=== PATIENT | male | born 1965 | race Caucasian/White ===

== ENCOUNTER 2016-12-05 11:44 | Inpatient (IN) | payer BC ==
[2016-12-05] MEDS ORDERED: DIPH,PERTUS(ACELL)TETVAC-LF 0.5 ML VIAL IM ONE (12:04)
--- NOTE | 2016-12-05 12:04 | ED ---
General Adult HPI - General Chief complaint: Head Injury Stated complaint: head injury Time Seen by Provider: 12/05/16 11:55 Source: patient, RN notes reviewed Mode of arrival: wheelchair Limitations: no limitations - History of Present Illness Initial comments: This a 51-year-old male who states he was cutting down a tree when adjacent tree fell and struck him in the head. Patient denies any loss of consciousness per patient states he is currently having headache in complaining of neck pain and he complains of bilateral tingling in his arms. Patient denies any numbness she denies any weakness of his arms. Patient denies any lower extremity numbness or weakness. Patient denies any other injuries. Patient denies chest pain palpitations difficulty breathing or shortness of breath. Patient denies any back pain. Patient denies any abdominal pain. Patient drove himself to the emergency department. - Related Data Home Medications Medication Instructions Recorded Confirmed Cetirizine HCl [Zyrtec] 10 mg PO DAILY 12/05/16 12/05/16 Naproxen [Naprosyn] 500 mg PO BID PRN 12/05/16 12/05/16 Allergies Allergy/AdvReac Type Severity Reaction Status Date / Time morphine AdvReac unable to Verified 12/05/16 12:43 urinate after surgery Review of Systems ROS Statement: Those systems with pertinent positive or pertinent negative responses have been documented in the HPI. ROS Other: All systems not noted in ROS Statement are negative. Past Medical History Past Medical History: Osteoarthritis (OA) History of Any Multi-Drug Resistant Organisms: None Reported Past Surgical History: Back Surgery, Orthopedic Surgery Additional Past Surgical History / Comment(s): right shoulder surg., right knee surg. x 3 Past Anesthesia/Blood Transfusion Reactions: No Reported Reaction Past Psychological History: No Psychological Hx Reported Smoking Status: Never smoker Past Alcohol Use History: None Reported Past Drug Use History: None Reported - Past Family History Father Family Medical History: Cancer General Exam - General Exam Comments Initial Comments: GENERAL: Patient is well-developed and well-nourished. Patient is nontoxic and well- hydrated and is in moderate distress. ENT: Neck is soft and supple. No significant lymphadenopathy is noted. Oropharynx is clear. Moist mucous membranes. Neck has full range of motion without eliciting any pain. EYES: The sclera were anicteric and conjunctiva were pink and moist. Extraocular movements were intact and pupils were equal round and reactive to light. Eyelids were unremarkable. PULMONARY: Unlabored respirations. Good breath sounds bilaterally. No audible rales rhonchi or wheezing was noted. CARDIOVASCULAR: There is a regular rate and rhythm without any murmurs gallops or rubs. ABDOMEN: Soft and nontender with normal bowel sounds. SKIN: Patient has a large crescent shaped laceration to the right side of his scalp measuring about 18 cm NEUROLOGIC: Patient is alert and oriented x3. Cranial nerves II through XII are grossly intact. Motor and sensory are also intact. Normal speech, volume and content. Symmetrical smile. MUSCULOSKELETAL: Normal extremities with adequate strength and full range of motion. No lower extremity swelling or edema. No calf tenderness. LYMPHATICS: No significant lymphadenopathy is noted PSYCHIATRIC: Normal psychiatric evaluation. Limitations: no limitations Course Vital Signs 12/05/16 11:53 Temperature 97.7 F Pulse Rate 74 Respiratory 20 Rate Blood Pressure 136/76 O2 Sat by Pulse 98 Oximetry Medical Decision Making - Medical Decision Making EKG shows sinus bradycardia with an occasional PVC at 55 bpm TN interval is 178 QRS is 96 Q-T intervals 434 QTC is 4:15. Patient's EKG shows no ST segment elevation or depression or T wave abnormalities are noted. CT of the brain is negative. CT of the C-spine is negative. I went in and they reexamined the patient he had some neck tenderness bilaterally. I discussed the case with Dr. Wong he wanted the patient but and aspirin collar and Dr. Archer will take the patient to the OR neurology will be consult and they will potentially do an MRI in the morning. I spoke with Dr. Ferris on 3 different occasions initially when I upgraded to trauma trauma 2. And again when the patient needed to go to OR. - Lab Data Result diagrams: 12/05/16 12:00 12/05/16 12:00 Lab Results 12/05/16 12/05/16 12/05/16 Range/Units 12:00 12:00 12:00 WBC 7.6 (3.8-10.6) k/uL RBC 4.96 (4.30-5.90) m/uL Hgb 15.0 (13.0-17.5) gm/dL Hct 44.8 (39.0-53.0) % MCV 90.3 (80.0-100.0) fL MCH 30.2 (25.0-35.0) pg MCHC 33.5 (31.0-37.0) g/dL RDW 12.9 (11.5-15.5) % Plt Count 257 (150-450) k/uL Neutrophils % 52 % Lymphocytes % 32 % Monocytes % 8 % Eosinophils % 3 % Basophils % 1 % Neutrophils # 3.9 (1.3-7.7) k/uL Lymphocytes # 2.5 (1.0-4.8) k/uL Monocytes # 0.6 (0-1.0) k/uL Eosinophils # 0.3 (0-0.7) k/uL Basophils # 0.1 (0-0.2) k/uL PT (9.0-12.0) sec INR (<1.1) APTT (22.0-30.0) sec Sodium 140 (137-145) mmol/L Potassium 3.7 (3.5-5.1) mmol/L Chloride 106 (98-107) mmol/L Carbon Dioxide 20 L (22-30) mmol/L Anion Gap 14 mmol/L BUN 16 (9-20) mg/dL Creatinine 1.02 (0.66-1.25) mg/dL Est GFR (MDRD) Af Amer >60 (>60 ml/min/1.73 sqM) Est GFR (MDRD) Non-Af >60 (>60 ml/min/1.73 sqM) Glucose 156 H (74-99) mg/dL Calcium 9.6 (8.4-10.2) mg/dL Total Bilirubin 0.9 (0.2-1.3) mg/dL AST 35 (17-59) U/L ALT 39 (21-72) U/L Alkaline Phosphatase 63 (38-126) U/L Total Protein 7.4 (6.3-8.2) g/dL Albumin 4.5 (3.5-5.0) g/dL Amylase 63 (30-110) U/L Lipase 199 (23-300) U/L Serum Alcohol <10 mg/dL Blood Type A Positive Blood Type Recheck CABO Indicated Spec Expiration Date 12/08/2016 - 229912/05/16 Range/Units 12:00 WBC (3.8-10.6) k/uL RBC (4.30-5.90) m/uL Hgb (13.0-17.5) gm/dL Hct (39.0-53.0) % MCV (80.0-100.0) fL MCH (25.0-35.0) pg MCHC (31.0-37.0) g/dL RDW (11.5-15.5) % Plt Count (150-450) k/uL Neutrophils % % Lymphocytes % % Monocytes % % Eosinophils % % Basophils % % Neutrophils # (1.3-7.7) k/uL Lymphocytes # (1.0-4.8) k/uL Monocytes # (0-1.0) k/uL Eosinophils # (0-0.7) k/uL Basophils # (0-0.2) k/uL PT 10.9 (9.0-12.0) sec INR 1.1 (<1.1) APTT 22.0 (22.0-30.0) sec Sodium (137-145) mmol/L Potassium (3.5-5.1) mmol/L Chloride (98-107) mmol/L Carbon Dioxide (22-30) mmol/L Anion Gap mmol/L BUN (9-20) mg/dL Creatinine (0.66-1.25) mg/dL Est GFR (MDRD) Af Amer (>60 ml/min/1.73 sqM) Est GFR (MDRD) Non-Af (>60 ml/min/1.73 sqM) Glucose (74-99) mg/dL Calcium (8.4-10.2) mg/dL Total Bilirubin (0.2-1.3) mg/dL AST (17-59) U/L ALT (21-72) U/L Alkaline Phosphatase (38-126) U/L Total Protein (6.3-8.2) g/dL Albumin (3.5-5.0) g/dL Amylase (30-110) U/L Lipase (23-300) U/L Serum Alcohol mg/dL Blood Type Blood Type Recheck Spec Expiration Date Disposition Clinical Impression: Closed head injury, Scalp laceration, Cervical strain, acute Disposition: ADMITTED IP TO THIS [facility] Referrals: Antonio Salmeron DO [Primary Care Provider] - 1-2 days Time of Disposition: 13:00
[2016-12-05] MEDS ORDERED: HYDROmorphone 1 MG/ML 1 ML SYRINGE IVP STA (12:05)
[2016-12-05] MEDS ORDERED: ONDANSETRON 4 MG/2 ML VIAL IVP STA (12:06)
[2016-12-05] MEDS ORDERED: ceFAZolin 2 GM in SODIUM CHLORIDE 0.9% 100 ML IVPB STA (12:12)
--- NOTE | 2016-12-05 12:22 | XR ---
EXAMINATION TYPE: XR pelvis AP view DATE OF EXAM ORDERED: 12/05/2016 HISTORY: Trauma. COMPARISON: None. FINDINGS: The bony pelvis is intact. No fracture is seen. There are mild degenerative changes within the lumbar spine. IMPRESSION: NO ACUTE OSSEOUS LESION.
--- NOTE | 2016-12-05 12:23 | XR ---
EXAMINATION TYPE: XR chest 1V portable DATE OF EXAM: 12/05/2016 HISTORY: trauma. REFERENCE: NONE. FINDINGS: The lungs are clear. Pleural space are clear. Heart size is normal. No acute osseous lesion is seen. IMPRESSION: NO ACUTE INTRATHORACIC ABNORMALITY.
[2016-12-05 12:27] LABS: Basophils # (A) 0.1 k/uL (0-0.2); Basophils % (A) 1 %; CH 31.7; CHCM 35.3; Eosinophils # (A) 0.3 k/uL (0-0.7); Eosinophils % (A) 3 %; HCT 44.8 % (39.0-53.0); HDW 2.56; Luc % (Auto) 4; Lymphocytes # (A) 2.5 k/uL (1.0-4.8); Lymphocytes % (A) 32 %; MCH 30.2 pg (25.0-35.0); MCHC 33.5 g/dL (31.0-37.0); MCV 90.3 fL (80.0-100.0); Mean Platelet Volume 7.3; Monocytes # (A) 0.6 k/uL (0-1.0); Monocytes % (A) 8 %; Neutrophils # (A) 3.9 k/uL (1.3-7.7); Neutrophils % (A) 52 %; RBC 4.96 m/uL (4.30-5.90); RDW 12.9 % (11.5-15.5); WBC 7.6 k/uL (3.8-10.6); WBC (Perox) 7.09
[2016-12-05 12:35] LABS: INR 1.1 (<1.1); Prothrombin Time 10.9 sec (9.0-12.0)
[2016-12-05] MEDS ORDERED: SODIUM CHLORIDE 0.9% 1,000 ML IV STA (12:35)
[2016-12-05 12:38] LABS: ALT 39 U/L (21-72); AST 35 U/L (17-59); Alcohol <10 mg/dL; Alkaline Phosphatase 63 U/L (38-126); Amylase 63 U/L (30-110); Anion Gap 14 mmol/L; Blood Urea Nitrogen 16 mg/dL (9-20); Calcium 9.6 mg/dL (8.4-10.2); Carbon Dioxide 20 mmol/L (22-30); Chloride 106 mmol/L (98-107); Glucose 156 mg/dL (74-99); Non-African American GFR(MDRD) >60 (>60 ml/min/1.73 sqM); Potassium 3.7 mmol/L (3.5-5.1); Sodium 140 mmol/L (137-145); Total Bilirubin 0.9 mg/dL (0.2-1.3); Total Protein 7.4 g/dL (6.3-8.2)
--- NOTE | 2016-12-05 12:43 | CT ---
EXAMINATION TYPE: CT brain isabel romero DATE OF EXAM: 12/05/2016 COMPARISON: Previous CT scan of the brain dated 12/30/2008 11 HISTORY: Head injury. Tree fell lengthwise on head CT DLP: 1594.60 mGycm Automated exposure control for dose reduction was used. TECHNIQUE: CT scan of the head and cervical spine are performed without contrast. FINDINGS: BRAIN: There is a right frontal scalp laceration. Central structures are midline. There is no evidence of hydrocephalus. No acute focal lesion, mass ef fect or midline shift is seen. I do not see evidence of intracranial blood. No depressed skull fracture is seen. There is extensive mucoperiosteal thickening involving the right maxillary sinus. There is a lesser degree of mucosal thickening involving the left maxillary sinus. The zygomatic arches are intact. The pterygoid plates are intact. Mastoid air cells are normal. IMPRESSION: 1. RIGHT FRONTAL SCALP LACERATION. 2. NO ACUTE INTRACRANIAL ABNORMALITY. 3. SINUS MUCOSAL DISEASE. CERVICAL SPINE: Visualized portions of the lungs are clear. There is emphysematous change. Prevertebral soft tissues are normal. Vertebral body height and alignment are maintained. Atlantoaxial relationships are normal. There is disc space loss and hypertrophic spondylosis at C5-6 and C6-7. There is uncovertebral joint disease at C3-4 through C6-7. There is facet arthropathy at C6-7. No fractures are seen. No definite protrusion is seen.. There is intervertebral foraminal narrowing bilaterally at C5-6 and on the left at C6-7. IMPRESSION: 1. NO ACUTE OSSEOUS LESION. 2. EXTENSIVE DEGENERATIVE CHANGE.
[2016-12-05 12:46] LABS: Creatine Kinase 195 U/L (55-170)
[2016-12-05 12:59] LABS: Creatine Kinase MB 0.8 ng/mL (0.0-2.4); Troponin I <0.012 ng/mL (0.000-0.034)
--- NOTE | 2016-12-05 13:33 | P.GSHP ---
History of Present Illness H&P Date: 12/05/16 Chief Complaint: Scalp laceration from a tree falling on him The patient was cutting down a tree when an adjacent tree fell and struck him in the head. He did not have loss of consciousness. He developed large scalp laceration and was feeling neck pain and tingling in his upper extremities. The tingling has since resolved. He also had some blurry vision. The blurry vision has resolved. No nausea or vomiting. He had unremarkable workup. Dr. Trent was contacted via phone and gave recommendations. - Review of Systems All systems: negative Past Medical History Past Medical History: Osteoarthritis (OA) History of Any Multi-Drug Resistant Organisms: None Reported Past Surgical History: Back Surgery, Orthopedic Surgery Additional Past Surgical History / Comment(s): right shoulder surg., right knee surg. x 3 Past Anesthesia/Blood Transfusion Reactions: No Reported Reaction Past Psychological History: No Psychological Hx Reported Smoking Status: Never smoker Past Alcohol Use History: None Reported Past Drug Use History: None Reported - Past Family History Father Family Medical History: Cancer Medications and Allergies Home Medications Medication Instructions Recorded Confirmed Type Cetirizine HCl [Zyrtec] 10 mg PO DAILY 12/05/16 12/05/16 History Naproxen [Naprosyn] 500 mg PO BID PRN 12/05/16 12/05/16 History Allergies Allergy/AdvReac Type Severity Reaction Status Date / Time morphine AdvReac unable to Verified 12/05/16 12:43 urinate after surgery Surgical - Exam Osteopathic Statement: *. No significant issues noted on an osteopathic structural exam other than those noted in the History and Physical/Consult. Vital Signs Temp Pulse Resp BP Pulse Ox 97.7 F 74 20 136/76 98 12/05/16 11:53 12/05/16 11:53 12/05/16 11:53 12/05/16 11:53 12/05/16 11:53 - General well developed, well nourished, no distress - Eyes normal ocular movement - ENT normal pinna, normal nares - Neck trachea midline - Respiratory normal respiratory effort, clear to auscultation - Cardiovascular Rhythm: regular - Abdomen Abdomen: soft, non tender - Integumentary The scalp laceration was evaluated by the emergency department physician. He currently has a large bulky dressing which is bloodsoaked - Neurologic no disoriented, no combative - Psychiatric oriented to time, oriented to person, oriented to place, speech is normal, memory intact Results - Labs 12/05/16 12:00 12/05/16 12:00 Abnormal Lab Results - Last 24 Hours (Table) 12/05/16 12/05/16 12/05/16 Range/Units 12:00 12:00 12:30 Carbon Dioxide 20 L (22-30) mmol/L Glucose 156 H (74-99) mg/dL Plasma Lactic Acid Mitch 2.4 H* (0.7-2.0) mmol/L Total Creatine Kinase 195 H (55-170) U/L Diabetes panel 12/05/16 Range/Units 12:00 Sodium 140 (137-145) mmol/L Potassium 3.7 (3.5-5.1) mmol/L Chloride 106 (98-107) mmol/L Carbon Dioxide 20 L (22-30) mmol/L BUN 16 (9-20) mg/dL Creatinine 1.02 (0.66-1.25) mg/dL Glucose 156 H (74-99) mg/dL Calcium 9.6 (8.4-10.2) mg/dL AST 35 (17-59) U/L ALT 39 (21-72) U/L Alkaline Phosphatase 63 (38-126) U/L Total Protein 7.4 (6.3-8.2) g/dL Albumin 4.5 (3.5-5.0) g/dL Calcium panel 12/05/16 Range/Units 12:00 Calcium 9.6 (8.4-10.2) mg/dL Albumin 4.5 (3.5-5.0) g/dL Pituitary panel 12/05/16 Range/Units 12:00 Sodium 140 (137-145) mmol/L Potassium 3.7 (3.5-5.1) mmol/L Chloride 106 (98-107) mmol/L Carbon Dioxide 20 L (22-30) mmol/L BUN 16 (9-20) mg/dL Creatinine 1.02 (0.66-1.25) mg/dL Glucose 156 H (74-99) mg/dL Calcium 9.6 (8.4-10.2) mg/dL Adrenal panel 12/05/16 Range/Units 12:00 Sodium 140 (137-145) mmol/L Potassium 3.7 (3.5-5.1) mmol/L Chloride 106 (98-107) mmol/L Carbon Dioxide 20 L (22-30) mmol/L BUN 16 (9-20) mg/dL Creatinine 1.02 (0.66-1.25) mg/dL Glucose 156 H (74-99) mg/dL Calcium 9.6 (8.4-10.2) mg/dL Total Bilirubin 0.9 (0.2-1.3) mg/dL AST 35 (17-59) U/L ALT 39 (21-72) U/L Alkaline Phosphatase 63 (38-126) U/L Total Protein 7.4 (6.3-8.2) g/dL Albumin 4.5 (3.5-5.0) g/dL - Imaging Comments: Computed tomography scan report was reviewed Assessment and Plan (1) Cervical strain, acute Status: Acute (2) Closed head injury Status: Acute (3) Scalp laceration Status: Acute Plan: We'll take the patient to the OR for washout and closure of the wound. Monitor him overnight and he will be evaluated by Dr. Tovar tomorrow. Further recommendations to follow.
[2016-12-05] MEDS ORDERED: PROPOFOL 10 MG/ML 20 ML VIAL IV ONE (14:06)
[2016-12-05] MEDS ORDERED: fentaNYL (PF) 50 MCG/ML 2 ML AMP ONE (14:06)
[2016-12-05] MEDS ORDERED: SUCCINYLCHOLINE CHLORIDE 100 MG/5 ML SYR IV ONE (14:06)
[2016-12-05] MEDS ORDERED: MIDAZOLAM 2 MG/2 ML VIAL ONE (14:06)
[2016-12-05] MEDS ORDERED: IV FLUID CONTINUATION 800 ML IV ONE (14:06)
[2016-12-05] MEDS ORDERED: ONDANSETRON 4 MG/2 ML VIAL ONE (14:06)
[2016-12-05] MEDS ORDERED: BUPIVACAIN-EPI 0.5%-1:200,000 30 ML VIAL SQ ONE ×2 (14:34)
[2016-12-05] MEDS ORDERED: LACTATED RINGERS 1,000 ML IV ONE ×2 (14:54)
[2016-12-05] MEDS ORDERED: BACITRACIN 500 UNIT/GM OINT 28.4 GM TUBE TOPICAL ONE (15:00)
[2016-12-05] MEDS ORDERED: NAPROXEN 250 MG TAB PO PRN (15:08)
[2016-12-05] MEDS ORDERED: ONDANSETRON 4 MG/2 ML VIAL IVP PRN (15:08)
[2016-12-05] MEDS ORDERED: NALOXONE 0.4 MG/ML 1 ML VIAL IV PRN (15:08)
--- NOTE | 2016-12-05 15:19 | P.OP ---
Date of Procedure: 12/05/16 Preoperative Diagnosis: Scalp laceration Postoperative Diagnosis: Complex scalp laceration Procedure(s) Performed: Repair of scalp laceration Implants: Anesthesia: JEANCARLOSA Surgeon: Renee Ferris Estimated Blood Loss (ml): 250 Pathology: none sent Condition: stable Disposition: PACU Indications for Procedure: The patient was struck by a falling tree root resulting in a laceration to the scalp Operative Findings: Patient's taken the operative suite where he is prepped and draped in the usual sterile manner under general anesthetic. C-collar was maintained throughout the procedure. He's found to have a large curvilinear laceration about 18 cm long. Over several pulsatile areas of bleeding along the cut edge. These were initially controlled with hemostats. They were then suture ligated with 3-0 Vicryl. Local anesthetic was then instilled into the skin and subcutaneous tissue along the laceration for hemostasis. Small bleeding points are controlled with electrocautery. The wound was then irrigated with Pulsavac. The skin was noted to be degloving about 8 cm towards the right. More medially the galea was completely disrupted. The cranium was visible, it appeared to be intact with no fractures. The galea was then sutured back together using 3-0 Vicryl. A quarter inch Dian drain was then placed under the flap. The skin was then closed in layers. Some deep 3-0 Vicryl sutures were placed. Then interrupted 3-0 Prolene. His heads cleaned of blood and then a sterile dressings applied. He tolerated the procedure without difficulties taken recovery room in satisfactory condition. We'll recheck his hemoglobin later today as the dressing from the emergency department was saturated with at least 200-300 mL's of blood. Description of Procedure:
--- NOTE | 2016-12-05 17:03 | P.CNNES ---
History of Present Illness Consult date: 12/05/16 Reason for Consult: Patient sustained closed head injury and scalp laceration from tree fall. History of Present Illness: This patient is a 51-year-old right-handed white male who was in his usual state of health until earlier today. The patient apparently was outdoors cutting a tree down with a saw when a adjacent tree fell and struck him on the top of his head. Patient was not wearing any headgear helmet at the time. He developed a large scalp laceration and was bleeding profusely from the scalp. Patient states he felt the initial head trauma but did not have any loss of consciousness with this impact. He immediately took his shirt and rafted around his head and scalp areas it was profusely bleeding. Apparently he phoned his and told her what had happened and stated that he was on his way there. When he arrived at his home he had significant bleeding from the scalp area. His immediately put a dressing and brought him into the emergency room at [facility] for further evaluation. While in route to the hospital ER the patient did complain of numbness and tingling sensation with mild neck pain radiating down both arms. By the time he was evaluated in the ER by Dr. Gregorio his symptoms of hand numbness had improved and resolved. The patient states that his initial impacted produce a headache which he rated about 7/10 in intensity. His headache symptoms now is 2/10. He was given some pain medications in the ER. He was placed in a hard cervical collar as well. The patient has no previous history of neck injury or head trauma. He thinks he may have had a few concussions as a teenager. He was seen in the emergency room by Dr. Gregorio. He underwent a computed tomography scan of the brain which revealed a right frontal scalp laceration. No acute intracranial abnormality was noted. Sinus mucosal disease was noted. Computed tomography scan of the cervical spine revealed no acute osseous lesion. Extensive degenerative change was noted at multiple levels of the C-spine. There was no evidence of any fracture or subluxation. Patient states he does have a history of neck trouble in the past with arthritis. He denies any major neck injury or motor vehicle accidents previously. 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 He has been in good health up until this injury today. The patient states his neck symptoms have resolved since coming into the hospital. He does feel some discomfort in the neck region but no significant pain or radicular symptoms down either arm. We reviewed the results of the CT of the brain and cervical spine with the patient. He is advised to inform the nursing staff if he develops any worsening headache, nausea vomiting, or focal weakness. We have mentioned to the patient that following closed head injury we are always on the look out for possibility of subdural hematoma. We will continue close neurological follow-up with this patient during this admission. Patient was seen by Dr. Ferris who has treated his scalp laceration. Orthopedic spine surgery is also been consulted. He was taken to the OR for washout and closure of the scalp wound. The patient is now admitted and neurology has been consulted for further evaluation and recommendations. Review of Systems Constitutional: Denies chills, Denies fever Eyes: denies blurred vision, denies pain Ears, nose, mouth and throat: Denies headache, Denies sore throat Cardiovascular: Denies chest pain, Denies shortness of breath Respiratory: Denies cough Gastrointestinal: Denies abdominal pain, Denies diarrhea, Denies nausea, Denies vomiting Musculoskeletal: Reports neck pain, Denies myalgias Integumentary: Denies pruritus, Denies rash Neurological: Reports headaches, Denies numbness, Denies weakness Psychiatric: Denies anxiety, Denies depression Endocrine: Denies fatigue, Denies weight change Past Medical History Past Medical History: Osteoarthritis (OA) History of Any Multi-Drug Resistant Organisms: None Reported Past Surgical History: Back Surgery, Orthopedic Surgery Additional Past Surgical History / Comment(s): right shoulder surg., right knee surg. x 3 Past Anesthesia/Blood Transfusion Reactions: No Reported Reaction Past Psychological History: No Psychological Hx Reported Smoking Status: Never smoker Past Alcohol Use History: None Reported Past Drug Use History: None Reported - Past Family History Father Family Medical History: Cancer Medications and Allergies Home Medications Medication Instructions Recorded Confirmed Type Cetirizine HCl [Zyrtec] 10 mg PO DAILY 12/05/16 12/05/16 History Naproxen [Naprosyn] 500 mg PO BID PRN 12/05/16 12/05/16 History Allergies Allergy/AdvReac Type Severity Reaction Status Date / Time morphine AdvReac unable to Verified 12/05/16 12:43 urinate after surgery Physical Examination - Vital Signs Vital Signs: Vital Signs Temp Pulse Pulse Resp BP BP Pulse Ox 12/05/16 15:51 70 18 128/74 95 12/05/16 15:36 66 18 123/74 98 12/05/16 15:21 97.4 F L 64 20 137/78 99 12/05/16 11:53 97.7 F 74 20 136/76 98 Intake and Output 12/05/16 12/05/16 12/05/16 06:59 14:59 22:59 Intake Total 800 900 Output Total 200 Balance 600 900 Intake: IV 800 900 Output: Estimated Blood Loss 200 Other: Weight 95.254 kg Patient Weight 12/06/16 06:59 Weight 95.254 kg - Constitutional General appearance: average body habitus, cooperative - EENT EENT: PERRL, mucous membranes moist - Respiratory Respiratory: lungs clear, normal breath sounds - Cardiovascular Cardiovascular: regular rate, normal S1, normal S2 Extremities: no peripheral edema bilaterally - Gastrointestinal Gastrointestinal: normoactive bowel sounds - Integumentary Integumentary: normal - Neurologic Cranial nerve examination: PERRL, EOMI (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.), VFF, V1/V2/V3 grossly intact, face symmetric, tongue midline, intact gag reflex, intact corneal reflex, normal palatal elevation Speech examination: intact Sensorimotor examination: intact Detailed motor examination: full strength in all major muscle groups Motor examination - right side: 5/5: biceps, triceps, wrist flexion, wrist extension, assistant technician, hip flexors, knee extensors, dorsiflexion, toe extension (EHL) , plantarflexion Motor examination - left side: 5/5: biceps, triceps, wrist flexion, wrist extension, assistant technician, hip flexors, knee extensors, dorsiflexion, toe extension (EHL) , plantarflexion Detailed sensory examination: intact Reflex and gait examination: intact Reflexes: 1+: ankle, bicep, knee, tricep - Musculoskeletal Musculoskeletal: no pain - Psychiatric Psychiatric: mood/affect appropriate, cooperative Results - Laboratory Findings CBC and BMP: 12/05/16 12:00 12/05/16 12:00 Abnormal Lab Findings: Abnormal Labs 12/05/16 12/05/16 12/05/16 12:00 12:00 12:30 Carbon Dioxide 20 L Glucose 156 H Plasma Lactic Acid Mitch 2.4 H* Total Creatine Kinase 195 H Assessment and Plan (1) Closed head injury Status: Acute Code(s): S09.90XA - UNSPECIFIED INJURY OF HEAD, INITIAL ENCOUNTER (2) Headache Status: Acute Code(s): R51 - HEADACHE (3) Cervical strain, acute Status: Acute Code(s): S16.1XXA - STRAIN OF MUSCLE, FASCIA AND TENDON AT NECK LEVEL, INIT (4) Scalp laceration Status: Acute Code(s): S01.01XA - LACERATION WITHOUT FOREIGN BODY OF SCALP, INITIAL ENCOUNTER Plan: This patient is a 51-year-old male who was out doors cutting the tree down when in the adjacent tree fell and struck him on the top of his head near the vertex. He did not have any loss of consciousness but did feel a jolt from the closed head injury. He developed a large scalp laceration and was profusely bleeding. He was able to contact his who decided immediately to bring him to the emergency room at [facility]. He was seen in the ER and was placed in a cervical collar. He underwent a computed tomography scan of the brain and cervical spine the results of which are noted above. Patient was seen by Dr. Ferris who did take the patient to the operating room for washout of the wound and flap area as well as closure of the wound. He was then admitted to the hospital. His neurological examination at this time is nonfocal. We have recommended the patient undergo MRI of the cervical spine for further evaluation of episode of bilateral paresthesias involving both upper extremities following closed head injury and had trauma. He does have evidence of some arthritic changes in the C-spine on computed tomography scan of the C-spine. We will await the MRI of the cervical spine to rule out any more significant changes. We reviewed the results of the computed tomography scan of the brain with the patient today in detail. His headache symptoms have reduced to 2/10 in intensity. If he has any further neurological deficits MRI of the brain will also be needed. We will continue close neurological follow- up for the patient. His neurological examination at this time is nonfocal. He is advised to monitor for any neuro changes over the next 48 hours including headache, nausea vomiting, and excessive sleepiness and fatigue. We reviewed the possibility of subdural hematoma formation following closed head injury. We will continue to monitor him closely for any neurological changes during this admission. His overall prognosis at this time remains fair. We will continue close neurological follow-up with this patient during this admission. Time with Patient: Greater than 30
[2016-12-05] MEDS: PANTOPRAZOLE 40 MG/10 ML VIAL IV SCH (17:48)
[2016-12-05 18:51] LABS: Basophils % (A) 0 %; CH 31.2; CHCM 33.6; Eosinophils # (A) 0.1 k/uL (0-0.7); Eosinophils % (A) 1 %; HCT 38.6 % (39.0-53.0); HDW 2.49; HGB 12.6 gm/dL (13.0-17.5); Luc % (Auto) 1; Lymphocytes # (A) 0.7 k/uL (1.0-4.8); Lymphocytes % (A) 7 %; MCH 30.5 pg (25.0-35.0); MCHC 32.7 g/dL (31.0-37.0); MCV 93.3 fL (80.0-100.0); Mean Platelet Volume 7.1; Monocytes # (A) 0.5 k/uL (0-1.0); Monocytes % (A) 5 %; Neutrophils # (A) 8.1 k/uL (1.3-7.7); Neutrophils % (A) 86 %; RBC 4.13 m/uL (4.30-5.90); RDW 12.9 % (11.5-15.5); WBC 9.4 k/uL (3.8-10.6); WBC (Perox) 10.13
[2016-12-05] MEDS: D5-0.45% NACL WITH KCL 20MEQ/L 1,000 ML IV SCH (20:37)
[2016-12-05] MEDS: HYDROcodone/APAP 5-325MG 1 EACH TAB PO PRN (22:22)
[2016-12-06 00:27] LABS: Appearance,Urine Clear (Clear); Bilirubin,Urine Negative (Negative); Glucose,Urine (UA) Negative (Negative); Ketones,Urine 1+ (Negative); Leukocyte Esterase,Urine Negative (Negative); Mucus,Urine Rare /hpf; Nitrite,Urine Negative (Negative); Particle Count 750; Protein,Urine Negative (Negative); Specific Gravity,Urine 1.011 (1.001-1.035); UA Billing (MACRO vs. MICRO) CHEM; Urobilinogen,Urine <2.0 mg/dL (<2.0); WBC,Urine 1 /hpf (0-5)
[2016-12-06 03:35] VITALS: RESP 16
[2016-12-06] MEDS: HYDROcodone/APAP 5-325MG 1 EACH TAB PO PRN ×2 (05:53→15:36)
[2016-12-06 06:40] LABS: CH 31.2; CHCM 35.2; HCT 33.5 % (39.0-53.0); HDW 2.58; MCH 31.9 pg (25.0-35.0); MCHC 35.9 g/dL (31.0-37.0); MCV 88.9 fL (80.0-100.0); Mean Platelet Volume 7.4; RBC 3.77 m/uL (4.30-5.90); RDW 12.5 % (11.5-15.5); WBC 5.8 k/uL (3.8-10.6)
[2016-12-06 07:13] LABS: Anion Gap 4 mmol/L; Blood Urea Nitrogen 11 mg/dL (9-20); Carbon Dioxide 26 mmol/L (22-30); Chloride 108 mmol/L (98-107); Glucose 104 mg/dL (74-99); Non-African American GFR(MDRD) >60 (>60 ml/min/1.73 sqM); Potassium 3.8 mmol/L (3.5-5.1); Sodium 138 mmol/L (137-145)
[2016-12-06] MEDS: LORATADINE 10 MG TAB PO SCH (07:32)
[2016-12-06] MEDS: PANTOPRAZOLE 40 MG/10 ML VIAL IV SCH (07:33)
--- NOTE | 2016-12-06 08:19 | P.HPOR ---
History of Present Illness H&P Date: 12/06/16 Chief Complaint: Scalp laceration head and neck pain Patient is seen and examined at bedside accompanied by his . 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 He says that he was working on a tree when he believes tree behind him fell and struck him on the head. He says that he did not have a specific loss of consciousness. He is not sure which weighs had bent at the time. He developed large scalp X serration and also says that he felt tingling at his neck and upper extremity is bilaterally. He says that the tingling continued on his way to the hospital after he was able to contact his . He said that he had some blurry vision. He feels now that the tingling and blurry vision has resolved. Once he gets emergency room he no longer had any blurry vision or tingling in his upper extremities. He denies previous issues in his neck and upper extremities in the past. He says sometimes his arms with get a bit numb when he would go on long hikes caring a backpack. He does not have any specific history of trauma prior to this incident at his head or neck. Review of Systems Denies loss of consciousness. Denies chest pains wrist breath. Denies clumsiness in his hands or fingers. Denies any new changes neurologically in his upper or lower extremities. He says he does have neck soreness and has had a sore. He feels most pain when he tries to turn his neck. He has been wearing hard cervical collar from the emergency room overnight. He has not yet worn the Mather cervical collar. Past Medical History Past Medical History: Osteoarthritis (OA) History of Any Multi-Drug Resistant Organisms: None Reported Past Surgical History: Back Surgery, Orthopedic Surgery Additional Past Surgical History / Comment(s): right shoulder surg., right knee surg. x 3 Past Anesthesia/Blood Transfusion Reactions: No Reported Reaction Past Psychological History: No Psychological Hx Reported Smoking Status: Never smoker Past Alcohol Use History: None Reported Past Drug Use History: None Reported - Past Family History Father Family Medical History: Cancer Medications and Allergies Home Medications Medication Instructions Recorded Confirmed Type Cetirizine HCl [Zyrtec] 10 mg PO DAILY 12/05/16 12/05/16 History Naproxen [Naprosyn] 500 mg PO BID PRN 12/05/16 12/05/16 History Allergies Allergy/AdvReac Type Severity Reaction Status Date / Time morphine AdvReac unable to Verified 12/05/16 12:43 urinate after surgery Physical Examination Osteopathic Statement: *. No significant issues noted on an osteopathic structural exam other than those noted in the History and Physical/Consult. - C Spine: dermatomal strength & reflexes bilateral Shoulder strength: flexion: 5/5 (His bandages are intact over his scalp. I removed the emergency room hard cervical collar. There is no open wounds lacerations or abrasions at his neck. He is nontender to palpation over the midline of the cervical spine and thoracic spine. He is nontender over his bilateral shoulders. He has good extension and flexion without pain. He has some soreness over the sternocleidomastoids bilaterally with rotation. There is no palpable deficits Is or instability. His upper extremity 5 out of 5 muscle strength with it with his shoulders biceps triceps wrist hands and fingers. There is no hyperreflexia. There is negative Augusta sign. There is good vascular intact.) Results - Labs Labs: Abnormal Lab Results - Last 24 Hours (Table) 12/05/16 12/05/16 12/05/16 Range/Units 12:00 12:00 12:30 RBC (4.30-5.90) m/uL Hgb (13.0-17.5) gm/dL Hct (39.0-53.0) % Neutrophils # (1.3-7.7) k/uL Lymphocytes # (1.0-4.8) k/uL Chloride (98-107) mmol/L Carbon Dioxide 20 L (22-30) mmol/L Glucose 156 H (74-99) mg/dL Plasma Lactic Acid Mitch 2.4 H* (0.7-2.0) mmol/L Calcium (8.4-10.2) mg/dL Total Creatine Kinase 195 H (55-170) U/L Urine Ketones (Negative) Urine Mucus (None) /hpf 12/05/16 12/06/16 12/06/16 Range/Units 18:38 00:10 06:25 RBC 4.13 L 3.77 L (4.30-5.90) m/uL Hgb 12.6 L 12.0 L (13.0-17.5) gm/dL Hct 38.6 L 33.5 L (39.0-53.0) % Neutrophils # 8.1 H (1.3-7.7) k/uL Lymphocytes # 0.7 L (1.0-4.8) k/uL Chloride (98-107) mmol/L Carbon Dioxide (22-30) mmol/L Glucose (74-99) mg/dL Plasma Lactic Acid Mitch (0.7-2.0) mmol/L Calcium (8.4-10.2) mg/dL Total Creatine Kinase (55-170) U/L Urine Ketones 1+ H (Negative) Urine Mucus Rare H (None) /hpf 12/06/16 Range/Units 06:25 RBC (4.30-5.90) m/uL Hgb (13.0-17.5) gm/dL Hct (39.0-53.0) % Neutrophils # (1.3-7.7) k/uL Lymphocytes # (1.0-4.8) k/uL Chloride 108 H (98-107) mmol/L Carbon Dioxide (22-30) mmol/L Glucose 104 H (74-99) mg/dL Plasma Lactic Acid Mitch (0.7-2.0) mmol/L Calcium 8.0 L (8.4-10.2) mg/dL Total Creatine Kinase (55-170) U/L Urine Ketones (Negative) Urine Mucus (None) /hpf H & H 12/05/16 12/05/16 12/06/16 Range/Units 12:00 18:38 06:25 Hgb 15.0 12.6 L 12.0 L (13.0-17.5) gm/dL Hct 44.8 38.6 L 33.5 L (39.0-53.0) % Coagulation 12/05/16 Range/Units 12:00 INR 1.1 (<1.1) Result Diagrams: 12/06/16 06:25 12/06/16 06:25 - Diagnostic results CT scan - cervical: report reviewed, image reviewed (I reviewed the cervical computed tomography scan. He has significant arthritis at his cervical spine at C1 2 as well as see 56 C6 7 with significant disc height loss at C5 6 C6 7. There is no obvious fracture. There is no obvious dislocation. There is some diffuse disc bulging and osteophytic spurring particular at C5 6 C6 7 with some canal narrowing.) Assessment and Plan Plan: Closed head injury after a tree fell onto his head Large scalp laceration status post irrigation and debridement in surgery yesterday evening with Dr. Ferris Neck pain and soreness Chronic degenerative disc disease C5 6 C6 7 Resolved bilateral upper extremity tingling The patient had significant blunt trauma to his head. He reportedly did not have loss of consciousness but he is being evaluated appropriately with neurology for any possible concussive issues. His significant scalp lacerations being managed by Gen. surgery appropriately and he should continue with those management. Regards to his cervical spine, I do not see any obvious instability or fracture on the computed tomography scan and he is able to mobilize adequately on his exam without neurologic deficit. I think it is okay to clear him from a hard cervical collar. He is not having any specific soft tissue tenderness at the posterior cervical spine but I think MRI is appropriate given his upper extremity symptoms with the high-energy trauma. It is likely that he had a stinger type injury and he is not having any focal losses at this point but with his significant arthritic changes certainly may need to be concerned for any sort of central cord syndrome that may develop. An MRI will help us in this regard for appropriate evaluation of the amount of stenosis at the multiple levels arthritic change given his new trauma. From a orthopedic spine standpoint once this is found to be clear it'll be okay for him to be discharged home with continued management and follow up with us in the near future for further evaluation and management as necessary. I discussed this with him and his . I discussed this with Dr. Ferris and we' re in agreement. I answered quite patient's questions best my ability and they' re agreeable
--- NOTE | 2016-12-06 10:06 | P.PN ---
Subjective Principal diagnosis: Closed head injury, head laceration, upper extremity paresthesias The patient is doing fairly well today. Denies any significant pain. Denies paresthesias Objective - Vital Signs Vital signs: Vital Signs Temp 98.2 F 12/06/16 07:00 Pulse 63 12/06/16 07:00 Resp 16 12/06/16 07:00 BP 123/76 12/06/16 07:00 Pulse Ox 96 12/06/16 07:00 Intake & Output 12/05/16 12/06/16 12/06/16 18:59 06:59 18:59 Intake Total 1700 1000 360 Output Total 200 Balance 1500 1000 360 Weight 95.254 kg Intake: IV 1700 Intake, IV Titration 650 Amount D5-0.45% NaCl with KCl 650 20Meq/l 1,000 ml @ 50 mls /hr IV .Q20H JORGE L Rx#: [id number] Oral 350 360 Output: Estimated Blood Loss 200 Other: # Voids 3 - Constitutional General appearance: Present: cooperative, no acute distress - EENT EENT Comment(s): Dressing with a amount of drainage. Extraocular muscles intact - Labs CBC & Chem 7: 12/06/16 06:25 12/06/16 06:25 Labs: Abnormal Lab Results - Last 24 Hours (Table) 12/05/16 12/05/16 12/05/16 Range/Units 12:00 12:00 12:30 RBC (4.30-5.90) m/uL Hgb (13.0-17.5) gm/dL Hct (39.0-53.0) % Neutrophils # (1.3-7.7) k/uL Lymphocytes # (1.0-4.8) k/uL Chloride (98-107) mmol/L Carbon Dioxide 20 L (22-30) mmol/L Glucose 156 H (74-99) mg/dL Plasma Lactic Acid Mitch 2.4 H* (0.7-2.0) mmol/L Calcium (8.4-10.2) mg/dL Total Creatine Kinase 195 H (55-170) U/L Urine Ketones (Negative) Urine Mucus (None) /hpf 12/05/16 12/06/16 12/06/16 Range/Units 18:38 00:10 06:25 RBC 4.13 L 3.77 L (4.30-5.90) m/uL Hgb 12.6 L 12.0 L (13.0-17.5) gm/dL Hct 38.6 L 33.5 L (39.0-53.0) % Neutrophils # 8.1 H (1.3-7.7) k/uL Lymphocytes # 0.7 L (1.0-4.8) k/uL Chloride (98-107) mmol/L Carbon Dioxide (22-30) mmol/L Glucose (74-99) mg/dL Plasma Lactic Acid Mitch (0.7-2.0) mmol/L Calcium (8.4-10.2) mg/dL Total Creatine Kinase (55-170) U/L Urine Ketones 1+ H (Negative) Urine Mucus Rare H (None) /hpf 12/06/16 Range/Units 06:25 RBC (4.30-5.90) m/uL Hgb (13.0-17.5) gm/dL Hct (39.0-53.0) % Neutrophils # (1.3-7.7) k/uL Lymphocytes # (1.0-4.8) k/uL Chloride 108 H (98-107) mmol/L Carbon Dioxide (22-30) mmol/L Glucose 104 H (74-99) mg/dL Plasma Lactic Acid Mitch (0.7-2.0) mmol/L Calcium 8.0 L (8.4-10.2) mg/dL Total Creatine Kinase (55-170) U/L Urine Ketones (Negative) Urine Mucus (None) /hpf Assessment and Plan (1) Cervical strain, acute Status: Acute (2) Closed head injury Status: Acute (3) Scalp laceration Status: Acute Plan: Case was discussed with Dr. Trent. He is clinically cleared his C-spine. The patient Will get a MRI however. If its normal, He will be discharged home.No work this week. I'll see him in the office Tuesday or To evaluate the laceration and remove the drain
[2016-12-06] MEDS: D5-0.45% NACL WITH KCL 20MEQ/L 1,000 ML IV SCH (15:37)
--- NOTE | 2016-12-06 17:09 | MR ---
EXAMINATION TYPE: MR cervical spine wo con DATE OF EXAM: 12/06/2016 COMPARISON: NONE HISTORY: CHI/neck pain TECHNIQUE: Multiplanar, multisequence images of the cervical spine were acquired. The cervical vertebra have normal alignment. There is narrowing of the disc spaces at C5-6 C6-7 with spurring of the endplates. There are small posterior disc herniations into the spinal canal at C2-3 C 3-4 C4-5 without significant impingement on the spinal canal. There is developmentally large spinal c anal. There is posterior endplate spur formation also at C6-7 without significant impingement on the cervical cord. Cervical spinal cord has normal signal pattern. There is no evidence of edema. Brainst em is intact. There is no sign of a fracture. IMPRESSION: Multilevel spondylotic change with multilevel posterior cervical disc herniation from C 2 to C5. No s weston stenosis. No fracture.
--- NOTE | 2016-12-06 21:34 | P.PN ---
Subjective This patient is a 51 year old who was admitted yesterday due to closed head injury and head trauma. He had a tree limb hit on the top of his head and produced and laceration. Patient was admitted to hospital and was seen by Dr. Ferris. She did do a cleaning of the scalp laceration. Due to his initial symptoms of head trauma followed by bilateral hand numbness and tingling there was concern for possible cervical disc disease. He was recommended to complete MRI of the cervical spine today. MRI of the C-spine was completed today and reveals multiple level spondylitic changes at multiple sites from C2 through C5 levels. Spinal stenosis of fracture was seen. Cord signal was normal throughout the entire spinal cord. No evidence of edema. We did review the results of the MRI today with the patient in detail. Patient was also seen by orthopedic spine surgery with Dr. Trent. He has been cleared for discharge from orthopedic spine. Patient states he has to have follow-up with Dr. Ferris to remove the scalp drains. This be done in the outpatient setting. Patient has been taken out of his hard cervical collar and seems to be doing fine. He is had a mild headache today but no hand numbness or weakness. We are recommending the patient to schedule a follow-up in the outpatient neurology clinic in 3-4 weeks. His overall prognosis at this time remains guarded. We will continue close neurological follow-up for the patient. All of his questions were answered today. He was updated on all of the recent test results including MRI of the cervical spine. Objective - Vital Signs Vital signs: Vital Signs Temp 98.1 F 12/06/16 15:02 Pulse 59 L 12/06/16 15:02 Resp 16 12/06/16 15:02 BP 134/72 12/06/16 15:02 Pulse Ox 97 12/06/16 15:02 Intake & Output 12/06/16 12/06/16 12/07/16 06:59 18:59 06:59 Intake Total 1000 1720 Balance 1000 1720 Intake: Intake, IV Titration 650 400 Amount D5-0.45% NaCl with KCl 650 400 20Meq/l 1,000 ml @ 50 mls /hr IV .Q20H JORGE L Rx#: [id number] Oral 350 1320 Other: # Voids 3 - Labs CBC & Chem 7: 12/06/16 06:25 12/06/16 06:25 Labs: Abnormal Lab Results - Last 24 Hours (Table) 12/06/16 12/06/16 12/06/16 Range/Units 00:10 06:25 06:25 RBC 3.77 L (4.30-5.90) m/uL Hgb 12.0 L (13.0-17.5) gm/dL Hct 33.5 L (39.0-53.0) % Chloride 108 H (98-107) mmol/L Glucose 104 H (74-99) mg/dL Calcium 8.0 L (8.4-10.2) mg/dL Urine Ketones 1+ H (Negative) Urine Mucus Rare H (None) /hpf Assessment and Plan (1) Closed head injury Status: Acute Code(s): S09.90XA - UNSPECIFIED INJURY OF HEAD, INITIAL ENCOUNTER (2) Headache Status: Acute Code(s): R51 - HEADACHE (3) Cervical strain, acute Status: Acute Code(s): S16.1XXA - STRAIN OF MUSCLE, FASCIA AND TENDON AT NECK LEVEL, INIT (4) Scalp laceration Status: Acute Code(s): S01.01XA - LACERATION WITHOUT FOREIGN BODY OF SCALP, INITIAL ENCOUNTER
[2016-12-07] MEDS: HYDROcodone/APAP 5-325MG 1 EACH TAB PO PRN (05:05)
[2016-12-07] MEDS: D5-0.45% NACL WITH KCL 20MEQ/L 1,000 ML IV SCH (07:08)
[2016-12-07 07:11] VITALS: BP 113/75; PULSE 61; TEMP 97.4
[2016-12-07] MEDS: LORATADINE 10 MG TAB PO SCH (07:13)
[2016-12-07] MEDS ORDERED: PANTOPRAZOLE 40 MG TABLET PO SCH (07:30)
[2016-12-07] MEDS ORDERED: NEOMYCIN-BACITRACIN-POLY OINT 14 GM TUBE TOPICAL PRN (08:33)
--- NOTE | 2016-12-07 09:00 | P.PN ---
Progress Note - Text Patient is very pleasant 51-year-old male who is seen and examined at bedside for follow-up evaluation of his cervical spine. Things seen and examined yesterday, he has had an MRI of the cervical spine performed. He recently had a tree fall on his head resulting in a 16 cm scalp laceration. He continues be followed by Dr. Ferris in general surgery. Patient currently denies any upper extremity radiculopathy or numbness bilaterally. He did get some numbness in the bilateral upper extremities initially after the injury but the symptoms have since subsided. He has no new complaints today. Physical Exam: Patient is awake, alert, and oriented 3 Vital signs stable Good chest excursion with deep inspiration and expiration Abdomen soft nontender Full range of motion of the cervical spine with adequate flexion, extension, and bilateral rotation [employer] strength, thumb strength, interosseous strength, biceps strength, triceps strength, and shoulder strength positive sustained bilaterally Evidence of a large dressing over his head covered in a large scalp laceration Pertinent studies: MRI cervical spine today on 12/06/2016: C5-6 and C6-7 degenerative disc disease with osteophytic spurring; small posterior disc herniations at C2-3, C3-4, and C4-5 without evidence of significant spinal canal stenosis; no evidence of fracture; spinal cord signal has normal pattern; No evidence of edema Assessment: Close head injury after tree fell onto his head Large scalp laceration status post irrigation and debridement with closure Cervical myofascial strain Chronic degenerative disc disease C5 to 6 C6-7 Result bilateral upper extremity tingling Plan: 1. Patient is not currently experiencing any upper extremity radiculopathy or weakness symptoms bilaterally. Following the MRI of the cervical spine, there is no evidence of acute changes or fracture to his cervical spine. No evidence of significant spinal canal stenosis. At this time, we will plan to continue with conservative treatment from an orthopedic spine standpoint. We are not currently planning for any surgical intervention in regards to cervical spine. We discussed he may participate in activities as tolerated. We will plan have him follow-up in approximately 2 weeks in the outpatient setting for further evaluation. Given the improvement of his initial symptoms of bilateral upper extremity tingling, it was discussed with the patient and his that we do not need to currently pursue further treatment unless he has an exacerbation of his symptoms or he starts to experience other new symptoms in regards to his cervical spine. The patient and his feel this is a good plan of care. 2. Patient will be continue to be followed by Dr. Ferris in general surgery for evaluation treatment for his scalp laceration 3. From an orthopedic spine standpoint, patient is clear for discharge once cleared by general surgery 4. Following discharge, patient may follow-up with Ehsan Alcaraz PA-C or Dr. Cosme Trent at [facility] in approximately 2 weeks 5. Patient has been discussed in patient detail with Dr. Cosme Trent and he agrees with this plan
--- NOTE | 2016-12-07 09:23 | P.DS ---
Providers Date of admission: 12/05/16 13:05 Expected date of discharge: 12/07/16 Attending physician: Renee Ferris Consults: 12/05/16 13:36 Consult Physician Urgent Consulting Provider: Franco Trent Consult Reason/Comments: cervcal strain Do you want consulting provider notified?: Already Contacted 12/05/16 13:37 Consult Physician Urgent Consulting Provider: Dorothy Corrigan Consult Reason/Comments: cevical injury Do you want consulting provider notified?: Yes Primary care physician: Antonio Salmeron - Discharge Diagnosis(es) (1) Cervical strain, acute Current Visit: Yes Status: Acute (2) Closed head injury Current Visit: Yes Status: Acute (3) Scalp laceration Current Visit: Yes Status: Acute Hospital Course: The patient presented to the emergency department after having a tree fall and strike him on the head. He had no loss of consciousness. He did have a large scalp laceration. He was taken to the OR where the duration was washed out and repaired. Consults were obtained due to tingling in his arms and mechanism of injury. The paresthesia quickly improved. MRI of his neck failed to reveal any acute pathology. By 6-6 he was felt to be stable for discharge Pertinent Studies: CT, MRI Procedures: Closure of laceration Patient Condition at Discharge: Good Plan - Discharge Summary New Discharge Prescriptions: New traMADol HCL [Ultram] 50 - 100 mg PO Q6HR PRN #30 tab PRN Reason: Pain No Action Cetirizine HCl [Zyrtec] 10 mg PO DAILY Naproxen [Naprosyn] 500 mg PO BID PRN PRN Reason: BACK PAIN Discharge Medication List Cetirizine HCl [Zyrtec] 10 mg PO DAILY 12/05/16 [History] Naproxen [Naprosyn] 500 mg PO BID PRN 12/05/16 [History] traMADol HCL [Ultram] 50 - 100 mg PO Q6HR PRN #30 tab 12/06/16 [Rx] Follow up Appointment(s)/Referral(s): Renee Ferris DO [Doctor of Osteopathic Medicine] - 12/09/16 (Tuesday or for drain removal) Gopal Corrigan MD [STAFF PHYSICIAN] - 3 Weeks Ehsan Alcaraz PAC [PHYSICIAN INSTALLATION HELPER] - 12/14/16 10:30 am (Patient may follow-up with Ehsan Alcaraz PA-C or Dr. Cosme Trent at [facility] in 1-2 weeks following discharge. CALL FAMILY DOCTOR TO SEND A REFFERRAL) Antonio Salmeron DO [Primary Care Provider] - 1-2 days Activity/Diet/Wound Care/Special Instructions: May gently wash the scalp with normal saline. May shower, no water directly on the scalp while the drain is in place. No driving until follow-up appointment. Call if questions or concerns Discharge Disposition: HOME SELF-CARE
== END 2016-12-07 09:40 | disposition home or self-care (01) | DRG 914 ==
LOC: EC 11:44 → 3SUR 13:05
PROVIDERS: ADMIT Surgery; ATTEND Surgery
PROC: 0HQ0XZZ Repair Scalp Skin, External Approach (ICD-10-PCS; principal; 2016-12-05 13:45)
DX: S09.8XXA Other specified injuries of head, initial encounter (principal); H53.8 Other visual disturbances; S01.01XA Laceration without foreign body of scalp, initial encounter; M19.90 Unspecified osteoarthritis, unspecified site; R20.2 Paresthesia of skin; S16.1XXA Strain of muscle, fascia and tendon at neck level, initial encounter; M50.323 Other cervical disc degeneration at C6-C7 level; W20.8XXA Other cause of strike by thrown, projected or falling object, initial encounter; Y92.9 Unspecified place or not applicable; Z88.5 Allergy status to narcotic agent
CPT/HCPCS: 36415; 70450; 71010; 72125; 72141; 72170; 80048; 80053; 80306; 80320; 81003; 82150; 82550; 82553; 83605; 83690; 84484; 85025; 85027; 85610; 85730; 86850; 86900; 86901; 90471; 90715; 93005; 96361; 96365; 96375; 99285

== ENCOUNTER → 2017-11-14 | Day surgery (SDC) | payer BC ==
[2017-11-10 09:44] VITALS: BMI 27.7
[~2017-11-14] MED LIST: LACTATED RINGERS 1,000 ML IV SCH; PROPOFOL 10 MG/ML 20 ML VIAL IV ONE; fentaNYL (PF) 50 MCG/ML 2 ML AMP ONE
[2017-11-14 07:13] VITALS: RESP 16; TEMP 97.7
--- NOTE | 2017-11-14 07:51 | P.GSHP ---
History of Present Illness H&P Date: 11/14/17 Chief Complaint: Screening colonoscopy This is a 51-year-old male referred from Dr. Salmeron. Patient presents today for screening colonoscopy. Patient denies a significant GI complaints. He's had a previous colonoscopy approximately 10 years ago. Past Medical History Past Medical History: Osteoarthritis (OA) History of Any Multi-Drug Resistant Organisms: None Reported Past Surgical History: Back Surgery, Orthopedic Surgery Additional Past Surgical History / Comment(s): right shoulder surg., right knee surg. x 3 Past Anesthesia/Blood Transfusion Reactions: No Reported Reaction Smoking Status: Never smoker - Past Family History Father Family Medical History: Cancer Medications and Allergies Home Medications Medication Instructions Recorded Confirmed Type Cetirizine HCl [Zyrtec] 10 mg PO DAILY PRN 12/05/16 11/14/17 History Naproxen [Naprosyn] 500 mg PO BID PRN 12/05/16 11/14/17 History Allergies Allergy/AdvReac Type Severity Reaction Status Date / Time morphine AdvReac unable to Verified 11/10/17 09:24 urinate after surgery Surgical - Exam Vital Signs Temp Pulse Resp BP Pulse Ox 97.7 F 46 L 16 121/78 97 11/14/17 07:12 11/14/17 07:12 11/14/17 07:12 11/14/17 07:12 11/14/17 07:12 - General well developed, no distress - Eyes PERRL - ENT normal pinna - Neck no masses - Respiratory normal expansion - Cardiovascular Rhythm: regular - Abdomen Abdomen: soft, non tender Assessment and Plan Assessment: We'll perform screening colonoscopy.
--- NOTE | 2017-11-14 08:06 | P.OP ---
Date of Procedure: 11/14/17 Preoperative Diagnosis: Screening colonoscopy Postoperative Diagnosis: External hemorrhoids Procedure(s) Performed: Colonoscopy Anesthesia: MAC Surgeon: Jesus Alberto Turner Pathology: none sent Condition: stable Disposition: PACU Description of Procedure: The patient's placed on the endoscopy table in the lateral position. He received IV sedation. Digital rectal exam was performed which revealed external hemorrhoids. The prostate was symmetrical without nodules. The flexible colonoscope was then placed patient anus and passed throughout the entire colon. The ileocecal valve was visualized. The cecum, ascending and transverse colon appeared normal. The descending and; appeared normal. The scope was then brought back the rectum and this appeared normal. Scope was withdrawn for patient and internal/external hemorrhoids were seen.
[2017-11-14 08:08] VITALS: BP 116/57; PULSE 67
== END ==
LOC: ORWHC2ENDO 06:53
PROVIDERS: ATTEND Surgery
DX: Z12.11 Encounter for screening for malignant neoplasm of colon (principal); K64.4 Residual hemorrhoidal skin tags; K64.8 Other hemorrhoids; M19.90 Unspecified osteoarthritis, unspecified site; Z88.5 Allergy status to narcotic agent
CPT/HCPCS: 93005; J3010; J2704; G0121

== ENCOUNTER → 2019-09-11 | Outpatient (CLI) | payer BC ==
--- NOTE | 2019-09-11 11:23 | XR ---
EXAMINATION TYPE: XR chest 2V DATE OF EXAM: 09/11/2019 COMPARISON: Prior chest x-ray December 05, 2016. HISTORY: Cough for 5 days. TECHNIQUE: Frontal and lateral views of the chest are obtained. FINDINGS: Improved inspiration on current study. There is no focal air space opacity, pleural effusio n, or pneumothorax seen. The cardiac silhouette size is within normal limits. The osseous structur es are intact. IMPRESSION: No suspicious acute pulmonary process.
== END | disposition home or self-care (01) ==
LOC: RADXRMAIN 10:52
PROVIDERS: ATTEND Family Medicine
DX: J20.8 Acute bronchitis due to other specified organisms (principal)
CPT/HCPCS: 71046

== ENCOUNTER 2020-03-03 09:18 | Emergency (ER) | payer BC ==
--- NOTE | 2020-03-03 10:36 | ED ---
Lower Extremity Injury HPI - General Chief Complaint: Extremity Injury, Lower Stated Complaint: knee swelling Time Seen by Provider: 03/03/20 09:43 Source: patient, RN notes reviewed Mode of arrival: wheelchair Limitations: no limitations - History of Present Illness Initial Comments: 54-year-old male presents emergency Department chief complaint of severe right knee pain and swelling. Patient states started a few weeks ago with no trauma. He has been he's had 2 prior orthopedic surgeries for ACL and MCL repair. Patient states that the pain in his knees increase along the posterior aspect. He states he's also developed pain in his hips, elbows and his left shoulder now. He states that his joints are very achy he's had ongoing chills slight cough. Patient states he is also very fatigued just does not feel well. He denies any nausea vomiting diarrhea constipation no sick contacts. He has not follow-up with primary care physician for this. - Related Data Home Medications Medication Instructions Recorded Confirmed Cetirizine HCl [Zyrtec] 10 mg PO DAILY PRN 12/05/16 11/14/17 Naproxen [Naprosyn] 500 mg PO BID PRN 12/05/16 11/14/17 Previous Rx's Medication Instructions Recorded HYDROcodone/APAP 7.5-325MG [[place] 1 tab PO Q6HR PRN 3 Days #12 tab 03/03/20 7.5-325] Allergies Allergy/AdvReac Type Severity Reaction Status Date / Time morphine AdvReac unable to Verified 03/03/20 09:22 urinate after surgery Review of Systems ROS Statement: Those systems with pertinent positive or pertinent negative responses have been documented in the HPI. ROS Other: All systems not noted in ROS Statement are negative. Past Medical History Past Medical History: Osteoarthritis (OA) History of Any Multi-Drug Resistant Organisms: None Reported Past Surgical History: Back Surgery, Orthopedic Surgery Additional Past Surgical History / Comment(s): right shoulder surg., right knee surg. x 3 Past Anesthesia/Blood Transfusion Reactions: No Reported Reaction Past Psychological History: No Psychological Hx Reported Smoking Status: Never smoker Past Alcohol Use History: Occasional Past Drug Use History: None Reported - Past Family History Father Family Medical History: Cancer General Exam Limitations: no limitations General appearance: alert, in no apparent distress Head exam: Present: atraumatic, normocephalic, normal inspection Eye exam: Present: normal appearance, PERRL, EOMI. Absent: scleral icterus, conjunctival injection, periorbital swelling ENT exam: Present: normal exam, normal oropharynx, mucous membranes moist Neck exam: Present: normal inspection, full ROM. Absent: tenderness, meningismus, lymphadenopathy Respiratory exam: Present: normal lung sounds bilaterally. Absent: respiratory distress, wheezes, rales, rhonchi, stridor Cardiovascular Exam: Present: regular rate, normal rhythm, normal heart sounds. Absent: systolic murmur, diastolic murmur, rubs, gallop, clicks Extremities exam: Present: other (Extensive swelling of the right knee with increased warmth no erythema patient reports pain with range of motion and difficulty with range of motion remaining extremity exam patient reports pain with range of motion no decreased range of motion no swelling or erythema of the joints) Neurological exam: Present: alert, oriented X3, CN II-XII intact, reflexes n ormal. Absent: motor sensory deficit Skin exam: Present: warm, dry, intact, normal color. Absent: rash Course Vital Signs 03/03/20 09:18 Temperature 97.5 F L Pulse Rate 75 Respiratory 18 Rate Blood Pressure 135/90 O2 Sat by Pulse 98 Oximetry Medical Decision Making - Medical Decision Making X-ray is reviewed shows evidence of postoperative changes degenerative changes ultrasound was negative. Patient has mild inflammatory marker elevation, labs otherwise unremarkable. I do not see any cause for pain in other joints, patient does have injuries to the right knee she'll follow-up with orthopedics for possible aspiration and further evaluation. - Lab Data Result diagrams: 03/03/20 10:16 03/03/20 10:16 Lab Results 03/03/20 03/03/20 03/03/20 Range/Units 10:16 10:16 10:16 WBC 10.3 (3.8-10.6) k/uL RBC 4.88 (4.30-5.90) m/uL Hgb 14.4 (13.0-17.5) gm/dL Hct 43.9 (39.0-53.0) % MCV 89.8 (80.0-100.0) fL MCH 29.6 (25.0-35.0) pg MCHC 32.9 (31.0-37.0) g/dL RDW 12.1 (11.5-15.5) % Plt Count 304 (150-450) k/uL Neutrophils % 79 % Lymphocytes % 11 % Monocytes % 8 % Eosinophils % 1 % Basophils % 0 % Neutrophils # 8.1 H (1.3-7.7) k/uL Lymphocytes # 1.1 (1.0-4.8) k/uL Monocytes # 0.8 (0-1.0) k/uL Eosinophils # 0.1 (0-0.7) k/uL Basophils # 0.0 (0-0.2) k/uL Sodium 137 (137-145) mmol/L Potassium 4.1 (3.5-5.1) mmol/L Chloride 104 (98-107) mmol/L Carbon Dioxide 25 (22-30) mmol/L Anion Gap 8 mmol/L BUN 13 (9-20) mg/dL Creatinine 0.91 (0.66-1.25) mg/dL Est GFR (CKD-EPI)AfAm >90 (>60 ml/min/1.73 sqM) Est GFR (CKD-EPI)NonAf >90 (>60 ml/min/1.73 sqM) Glucose 122 H (74-99) mg/dL Plasma Lactic Acid Mitch 1.3 (0.7-2.0) mmol/L Calcium 8.9 (8.4-10.2) mg/dL Total Bilirubin 0.7 (0.2-1.3) mg/dL AST 37 (17-59) U/L ALT 41 (4-49) U/L Alkaline Phosphatase 82 (38-126) U/L C-Reactive Protein 39.1 H (<10.0) mg/L Total Protein 7.0 (6.3-8.2) g/dL Albumin 4.0 (3.5-5.0) g/dL Disposition Clinical Impression: Right knee pain, Effusion, right knee, Polyarthralgia Disposition: HOME SELF-CARE Condition: Stable Instructions (If sedation given, give patient instructions): Knee Pain (ED) Additional Instructions: Please return to the Emergency Department if symptoms worsen or any other conc erns. Prescriptions: HYDROcodone/APAP 7.5-325MG [[place] 7.5-325] 1 tab PO Q6HR PRN 3 Days #12 tab PRN Reason: pain Is patient prescribed a controlled substance at d/c from ED?: No Referrals: Antonio Salmeron DO [Primary Care Provider] - 1-2 days Time of Disposition: 12:11
[2020-03-03 10:42] LABS: Basophils % (A) 0 %; Eosinophils # (A) 0.1 k/uL (0-0.7); Eosinophils % (A) 1 %; HCT 43.9 % (39.0-53.0); HGB 14.4 gm/dL (13.0-17.5); Lymphocytes # (A) 1.1 k/uL (1.0-4.8); Lymphocytes % (A) 11 %; MCH 29.6 pg (25.0-35.0); MCHC 32.9 g/dL (31.0-37.0); MCV 89.8 fL (80.0-100.0); Mean Platelet Volume 7.3; Monocytes # (A) 0.8 k/uL (0-1.0); Monocytes % (A) 8 %; Neutrophils # (A) 8.1 k/uL (1.3-7.7); Neutrophils % (A) 79 %; Platelet Count 304 k/uL (150-450); RBC 4.88 m/uL (4.30-5.90); RDW 12.1 % (11.5-15.5); WBC 10.3 k/uL (3.8-10.6)
[2020-03-03 10:53] LABS: ALT 41 U/L (4-49); AST 37 U/L (17-59); African American GFR (CKD) >90 (>60 ml/min/1.73 sqM); Alkaline Phosphatase 82 U/L (38-126); Anion Gap 8 mmol/L; Blood Urea Nitrogen 13 mg/dL (9-20); C Reactive Protein 39.1 mg/L (<10.0); Calcium 8.9 mg/dL (8.4-10.2); Carbon Dioxide 25 mmol/L (22-30); Chloride 104 mmol/L (98-107); Glucose 122 mg/dL (74-99); Non-African American GFR(CKD) >90 (>60 ml/min/1.73 sqM); Potassium 4.1 mmol/L (3.5-5.1); Sodium 137 mmol/L (137-145); Total Bilirubin 0.7 mg/dL (0.2-1.3)
--- NOTE | 2020-03-03 11:05 | XR ---
EXAMINATION TYPE: XR knee complete RT DATE OF EXAM: 03/03/2020 COMPARISON: None HISTORY: Pain swelling TECHNIQUE: Three-view right knee FINDINGS: [place] are present within the medial metaphyseal tibia. Prior anterior cruciate ligament r epair is evident. Degenerative changes are through the joint spaces. There is noted medial lateral co mpartment joint spaces. Moderate joint effusion is present. No acute fractures identified. Follow-up exams can be performed 7-10 days from acute trauma for tonya nued pain. IMPRESSION: 1. Postsurgical changes within the right knee. 2. Moderate degenerative joint changes. 3. Moderate joint effusion
--- NOTE | 2020-03-03 11:46 | US ---
EXAMINATION TYPE: US venous doppler duplex LE RT DATE OF EXAM: 03/03/2020 11:02 AM COMPARISON: NONE CLINICAL HISTORY: pain. Pain right leg SIDE PERFORMED: right TECHNIQUE: The lower extremity deep venous system is examined utilizing real time linear array sonog aneudy with graded compression, doppler sonography and color-flow sonography. VESSELS IMAGED: External Iliac Vein (EIV) Common Femoral Vein Deep Femoral Vein Greater Saphenous Vein * Femoral Vein Popliteal Vein Small Saphenous Vein * Proximal Calf Veins (* superficial vessels) Right Leg: There is normal flow, compressibility, vascular waveforms. No evidence of DVT IMPRESSION: No DVT in the right lower extremity.
[2020-03-03] MEDS ORDERED: KETOROLAC 15 MG/ML 1 ML VIAL IVP STA (12:08)
[2020-03-03] MEDS ORDERED: HYDROcodone/APAP 7.5-325MG 1 EACH TAB PO ONE (12:09)
[2020-03-03 12:45] VITALS: BP 126/88; PULSE 72; RESP 16; TEMP 98.7
== END 2020-03-03 12:49 | disposition home or self-care (01) ==
LOC: EC 09:18
DX: S89.91XA Unspecified injury of right lower leg, initial encounter (principal); M17.11 Unilateral primary osteoarthritis, right knee; Z88.5 Allergy status to narcotic agent; Z98.890 Other specified postprocedural states; X58.XXXA Exposure to other specified factors, initial encounter
CPT/HCPCS: 36415; 80053; 83605; 85025; 86140; 73562; 93971; 99284; 96374; J1885

== ENCOUNTER → 2020-06-19 | Outpatient (CLI) | payer BC ==
--- NOTE | 2020-06-19 11:40 | CT ---
EXAMINATION TYPE: CT chest wo/w con DATE OF EXAM: 06/19/2020 COMPARISON: None HISTORY: Chronic cough CT DLP: 720.50 mGycm, Automated exposure control for dose reduction was used. CONTRAST: Performed injected with 100 ml mL of Isovue 300. TECHNIQUE: Axial images were obtained at 5 mm thick sections. Reconstructed images are reviewed on [email or web address] computer in the coronal plane. FINDINGS: Portion of the thyroid visualized is normal. There is a 0.2 cm punctate nodule within the periphery of the right upper lobe. Series 8 image 39. No enlarged mediastinal or hilar adenopathy is evident. The ascending aorta diameter at the level o f the main pulmonary artery is 3.7 cm. The main pulmonary artery diameter at the bifurcation is 3.[address] sections are obtained through the upper abdomen. Abdomen is essentially unremarkable. IMPRESSIONS: 1. 0.2 cm peripheral nodule right upper lobe. Follow-up CT in one year can be performed for high-risk patients.
== END | disposition home or self-care (01) ==
LOC: RADCTMAIN 08:02
PROVIDERS: ATTEND Family Medicine
DX: R91.1 Solitary pulmonary nodule (principal)
CPT/HCPCS: 71270; Q9967

== ENCOUNTER → 2020-07-14 | Outpatient (CLI) | payer BC ==
[2020-07-15 05:34] LABS: EBV - VCA (IgG) >750.0 U/mL (<18.0); EBV - VCA IgM 12.6 U/mL (<36.0)
== END | disposition home or self-care (01) ==
LOC: LABWHC1 11:47
PROVIDERS: ATTEND Psychiatry & Neurology Neurology
DX: M06.9 Rheumatoid arthritis, unspecified (principal); R06.02 Shortness of breath; R53.1 Weakness; R29.2 Abnormal reflex
CPT/HCPCS: 36415; 82550; 86665

== ENCOUNTER → 2020-07-29 | Outpatient (CLI) | payer BC ==
--- NOTE | 2020-07-29 11:41 | MR ---
EXAMINATION TYPE: MR brain/cspine wo DATE OF EXAM: 07/29/2020 COMPARISON: CT brain and cervical spine December 05, 2016 HISTORY: Pain, weakness and numbness in upper extremities TECHNIQUE: Multiplanar, multisequence imaging of the cervical spine, brain and brainstem are all perf ormed without IV contrast. FINDINGS: BRAIN: Diffusion weighted images demonstrate no evidence of a recent infarct or other diffusion abnormality. There is no extraaxial fluid collection or significant white matter signal abnormality. Mild ventricu lar and sulcal prominence. Midline structures demonstrate normal morphology. The craniocervical junction appears within normal limits. Normal vascular flow voids are present. There is now complete opacification right maxillary s inus. Moderate mucosal thickening inferiorly left maxillary sinus now present more prominent from lea or. Patchy fluid signal anterior ethmoid sinuses bilaterally. Mild mucosal thickening bilateral front al sinuses and left sphenoid sinus. Lenses are deviated suggesting underlying strabismus similar to p rior IMPRESSION: Mild diffuse age-related cerebral atrophy. Acute on chronic paranasal sinus disease more prominent from prior. Strabismus redemonstrated. MRI CERVICAL SPINE: FINDINGS: Coronal images redemonstrate slight dextroconvex scoliotic curvature centered near the cerv icothoracic junction. Sagittal images of the cervical spine show the craniocervical junction to appea r within normal limits. The cervical and upper thoracic spinal cord is normal in caliber and signal. Grade 1 retrolisthesis C4 on C5 and to lesser degree C5 and C6 redemonstrated. The vertebral body h eights remain normal. Mild to moderate multilevel disc space narrowing redemonstrated. The bone marro w signal intensity is within normal limits. Exaggerated cervical kyphosis. Axial images at C2-C3 level show tiny central disc protrusion minimally effacing anterior thecal sac. Axial images at C3-C4 levels with right paracentral spur disc complex effacing anterior left thecal s ac and causing [id number] right-sided neural foraminal narrowing. Axial images at C4-C5 levels with spondylolisthesis with broad-based posterior disc protrusion and un covertebral facet degenerative changes bilaterally, there is effacement of the anterior thecal sac an d [id number] bilateral neural foraminal narrowing. Axial images at C5-C6 levels with spondylolisthesis with broad-based disc protrusion effacing anterio r thecal sac and causing advanced right and moderate left-sided neural foraminal narrowing. Axial images at C6-C7 level with posterior spur disc complex effacing anterior thecal sac along with left-sided marginal spurring causing asymmetric moderate to severe left-sided neural foraminal narrow ing, there is mild right-sided neural foraminal narrowing noted. Axial images at C7-T1 level appear within normal limits. IMPRESSION: Multilevel spondylolisthesis and degenerative changes in the cervical spine greatest at C 5-C6 level as detailed above
== END | disposition home or self-care (01) ==
LOC: RADMRIMAIN 07:31
PROVIDERS: ATTEND Psychiatry & Neurology Neurology
DX: G52.9 Cranial nerve disorder, unspecified (principal); M47.12 Other spondylosis with myelopathy, cervical region; M54.2 Cervicalgia; R53.1 Weakness; R51.9 Headache, unspecified; R06.02 Shortness of breath
CPT/HCPCS: 70551; 72141

== ENCOUNTER → 2020-12-19 | Outpatient (CLI) | payer BC ==
--- NOTE | 2020-12-19 13:45 | CT ---
EXAMINATION TYPE: CT chest wo/w con DATE OF EXAM: 12/19/2020 COMPARISON: 06/19/2020 HISTORY: nodule, cough CT DLP: 730.1 mGycm, Automated exposure control for dose reduction was used. CONTRAST: Performed injected with 100 mL of Isovue 300. TECHNIQUE: Axial images were obtained at 5 mm thick sections. Reconstructed images are reviewed on [employer] computer in the coronal plane. FINDINGS: Portion of the thyroid visualized is normal. There is a punctate nodularity in the periphery of the left midlung. Series 6 image 23. This may have been present in retrospect. There is a 0.3 cm nodule along the left diaphragm. This was present previously and is better visualiz ed currently. The 0.2 cm peripheral right midlung nodule, series 6 image 36, was present previously. No enlarged mediastinal or hilar adenopathy is evident. The ascending aorta diameter at the level o f the main pulmonary artery is 3.6 cm. The main pulmonary artery diameter at the bifurcation is 2.[address] sections are obtained through the upper abdomen. Abdomen is essentially unremarkable. IMPRESSIONS: 1. Few small nodules bilateral lungs are stable from comparison. Additional follow-up in one year is recommended.
== END | disposition home or self-care (01) ==
LOC: RADCTMAIN 08:09
PROVIDERS: ATTEND Family Medicine
DX: R91.8 Other nonspecific abnormal finding of lung field (principal)
CPT/HCPCS: 71270; Q9967

== ENCOUNTER → 2022-04-07 | Outpatient (CLI) | payer BC ==
--- NOTE | 2022-04-07 09:21 | CT ---
EXAMINATION TYPE: CT chest w con DATE OF EXAM: 04/07/2022 COMPARISON: 12/19/2020 HISTORY: Pulmonary nodule CT DLP: 815 mGycm, Automated exposure control for dose reduction was used. CONTRAST: Performed injected with 100ml mL of Isovue 300. TECHNIQUE: Axial images were obtained at 5 mm thick sections. Reconstructed images are reviewed on [employer] computer in the coronal plane. FINDINGS: Portion of the thyroid visualized is normal. There is a 0.3 cm nodule adjacent to the left lateral diaphragm, series 5 image 59, stable from ryan rison. Tiny linear density in the anterior right lung is stable, series 5 image 48. A stable 0.2 cm n odules in the anterolateral right lung, series 5 image 43. Punctate nodularities in the lateral left mid lung. Series 5 image 30. No new or increasing size nodules are evident. No enlarged mediastinal or hilar adenopathy is evident. The ascending aorta diameter at the level o f the main pulmonary artery is 3.3 cm. The main pulmonary artery diameter at the bifurcation is 2.[address] sections are obtained through the upper abdomen. Small hiatal hernia is present. Abdomen i s otherwise unremarkable as visualized. IMPRESSIONS: 1. Stable punctate nodularities discussed above. These should be confirmed as stable over the course of 2 years. Follow-up chest CT in 6-8 months is recommended.
== END | disposition home or self-care (01) ==
LOC: RADCTMAIN 07:45
PROVIDERS: ATTEND Family Medicine
DX: R91.8 Other nonspecific abnormal finding of lung field (principal)
CPT/HCPCS: 71260; Q9967

== ENCOUNTER → 2023-04-05 | Outpatient (CLI) | payer BC ==
--- NOTE | 2023-04-06 12:14 | CT ---
EXAMINATION TYPE: CT chest wo/w con DATE OF EXAM: 04/05/2023 COMPARISON: 04/07/2022 HISTORY: Abnormal findings lung castillo CT DLP: 757 mGycm Automated exposure control for dose reduction was used. CONTRAST: CT scan of the chest is performed with IV Contrast, patient injected with 100 mL of Isovue 300. FINDINGS: LUNGS: Again noted are a few scattered sub-3 mm pulmonary nodular densities. No enlarging nodules or new nodules seen. No focal consolidation or volume loss. There is no pleural effusion or pneumothorax seen. The tracheobronchial tree is patent. MEDIASTINUM: There are no greater than 1 cm hilar or mediastinal lymph nodes. No pericardial effusi on is seen. Thoracic aorta is of normal caliber. The heart is not enlarged. UPPER ABDOMEN: No significant abnormality appreciated. OTHER: No additional significant abnormality is seen. IMPRESSION: Again noted are a few scattered sub-3 mm pulmonary nodular densities. No enlarging nodules or new nod ules seen.
== END | disposition home or self-care (01) ==
LOC: RADCTMAIN 14:31
PROVIDERS: ATTEND Family Medicine
DX: J98.4 Other disorders of lung (principal); R91.8 Other nonspecific abnormal finding of lung field
CPT/HCPCS: 71270; Q9967

== ENCOUNTER → 2023-12-02 | Outpatient (CLI) | payer BC ==
--- NOTE | 2023-12-02 13:19 | XR ---
EXAMINATION TYPE: XR lumbosacral spine min 4V DATE OF EXAM: 12/02/2023 COMPARISON: None HISTORY: Pain TECHNIQUE: 5 view lumbar spine FINDINGS: There are 5 lumbar-type vertebral bodies. Pedicles are intact. There is narrowing of disc h eight L2-3 L3-4 L4-5 and L5-S1. Anterior vertebral body spurring is present L3 and L4. No spondylolyt ic defects are evident. IMPRESSION: 1. Degenerative disc changes throughout the lumbar spine.
== END | disposition home or self-care (01) ==
LOC: RADXRMAIN 12:53
PROVIDERS: ATTEND Family Medicine
DX: M51.37 Other intervertebral disc degeneration, lumbosacral region (principal)
CPT/HCPCS: 72110